=== PATIENT | female | born 1975 | race Caucasian/White ===

== ENCOUNTER → 2024-01-20 13:01 | Outpatient (REF) | payer OTHER, SELFPAY | LOC: HWRAD 13:01 | PROVIDERS: ATTENDING PHYSICIAN Urology; FAMILY PHYSICIAN Family Medicine | DX: N30.10 Interstitial cystitis (chronic) without hematuria (principal); N39.0 Urinary tract infection, site not specified; M62.89 Other specified disorders of muscle; N94.10 Unspecified dyspareunia; N95.8 Other specified menopausal and perimenopausal disorders | CPT/HCPCS: 76770; 76856 ==

== ENCOUNTER → 2024-03-25 12:56 | Outpatient (REF) | payer OTHER, SELFPAY | LOC: HWRAD 12:56 | PROVIDERS: ATTENDING PHYSICIAN Internal Medicine Endocrinology, Diabetes & Metabolism; FAMILY PHYSICIAN Family Medicine | DX: E04.2 Nontoxic multinodular goiter (principal) | CPT/HCPCS: 76536 ==

== ENCOUNTER → 2024-05-19 16:01 | Outpatient (REF) | payer OTHER, SELFPAY | LOC: RAD 16:01 | PROVIDERS: ATTENDING PHYSICIAN Physician Assistant Medical | DX: R10.32 Left lower quadrant pain (principal); R10.9 Unspecified abdominal pain; R10.12 Left upper quadrant pain | CPT/HCPCS: 74176 ==

== ENCOUNTER 2024-07-29 11:23 | Emergency (ER) | payer OTHER, SELFPAY ==
[2024-07-29 11:26] VITALS: BP 135/92
[2024-07-29 11:42] LABS: % Basophils 0.3 % (0-2); % Eosinophils 0.3 % (0-6); % Immature Granulocytes 0.3 % (0-0.5); % Lymphocytes 29.3 % (20.5-51.1); % Monocytes 10.4 % (1.7-9.3); % Neutrophils 59.4 % (42.2-75.2); Absolute Lymphocytes 2.9 10^3/uL (1.2-3.4); Absolute Neutrophils 5.9 10^3/uL (1.4-6.5); Hematocrit 42.3 % (37.0-47.0); Hemoglobin 14.1 g/dL (12.0-16.0); Mean Corp Hgb Conc. 33.3 g/dL (33.0-37.0); Mean Corpuscular Hgb 31.6 pg (27.0-31.0); Mean Corpuscular Volume 94.8 fL (81.0-99.0); Mean Platelet Volume 8.9 fL (7.4-10.4); Nucleated Red Blood Cells % 0 %; Platelet Count 286 10^3/uL (130-400); Red Blood Cell Count 4.46 10^6/uL (4.20-5.40); Red Cell Dist. Width 12.4 % (11.5-14.5); White Blood Cell Count 9.9 10^3/uL (4.8-10.8)
[2024-07-29 12:01] LABS: ALT (SGPT) 24 U/L (0-35); AST (SGOT) 22 U/L (14-36); Albumin 4.7 g/dl (3.5-5.0); Alkaline Phosphatase 31 U/L (38-126); Blood Urea Nitrogen 11 mg/dl (7-17); Calcium 9.5 mg/dl (8.4-10.2); Carbon Dioxide 27 mmol/L (22-30); Chloride 102 mmol/L (98-107); Glucose 92 mg/dl (70-99); Sodium 141 mmol/L (135-145); Total Bilirubin 0.5 mg/dl (0.2-1.3); Total Protein 7.3 g/dl (6.3-8.2); eGFR > 60.00
[2024-07-29 12:12] LABS: Troponin I < 0.012 ng/ml
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
[2024-07-29 13:21] VITALS: BMI 20.3
[2024-07-29 14:09] LABS: D-Dimer 0.67 ug/mlFEU (0.00-0.50)
[2024-07-29 15:01] VITALS: BP 132/82
[2024-07-29 16:33] LABS: Troponin I < 0.012 ng/ml
[2024-07-29 17:00] VITALS: BP 128/86
[2024-07-29 19:02] VITALS: BP 136/78
== END 2024-07-29 19:02 | disposition home or self-care (01) ==
LOC: EMR 11:23
PROVIDERS: Emergency Medicine; Physician Assistant; EMERGENCY PHYSICIAN Emergency Medicine; FAMILY PHYSICIAN Family Medicine
DX: R07.89 Other chest pain (principal); J45.909 Unspecified asthma, uncomplicated; Z98.891 History of uterine scar from previous surgery; M35.9 Systemic involvement of connective tissue, unspecified
CPT/HCPCS: 99284; 71046; 71275; 80053; 84484; 85025; 85379; 93005; Q9967

== ENCOUNTER → 2024-08-26 11:13 | Outpatient (REF) | payer OTHER, SELFPAY | LOC: DHCBC/DCA 11:13 | PROVIDERS: ATTENDING PHYSICIAN Nurse Practitioner; FAMILY PHYSICIAN Family Medicine | DX: R07.9 Chest pain, unspecified (principal) | CPT/HCPCS: 78452; 93017; A9500; J2785 ==

== ENCOUNTER → 2024-08-28 07:25 | Outpatient (REF) | payer OTHER, SELFPAY | LOC: HWRCS 07:25 | PROVIDERS: ATTENDING PHYSICIAN Nurse Practitioner; FAMILY PHYSICIAN Family Medicine | DX: R06.09 Other forms of dyspnea (principal) | CPT/HCPCS: 93306 ==

== ENCOUNTER 2025-01-21 17:15 | Emergency (ER) | payer OTHER, SELFPAY ==
[2025-01-21 17:21] VITALS: BP 174/103
[2025-01-21 17:55] LABS: % Basophils 0.7 % (0-2); % Eosinophils 4.3 % (0-6); % Immature Granulocytes 0.2 % (0-0.5); % Lymphocytes 16.7 % (20.5-51.1); % Monocytes 9.4 % (1.7-9.3); % Neutrophils 68.7 % (42.2-75.2); Absolute Eosinophils 0.2 10^3/uL (0-0.7); Absolute Lymphocytes 0.9 10^3/uL (1.2-3.4); Absolute Monocytes 0.5 10^3/uL (0.1-0.6); Absolute Neutrophils 3.9 10^3/uL (1.4-6.5); Hematocrit 43.8 % (37.0-47.0); Hemoglobin 15.1 g/dL (12.0-16.0); Mean Corp Hgb Conc. 34.5 g/dL (33.0-37.0); Mean Corpuscular Hgb 32.3 pg (27.0-31.0); Mean Corpuscular Volume 93.6 fL (81.0-99.0); Mean Platelet Volume 8.4 fL (7.4-10.4); Nucleated Red Blood Cells % 0 %; Platelet Count 249 10^3/uL (130-400); Red Blood Cell Count 4.68 10^6/uL (4.20-5.40); Red Cell Dist. Width 12.3 % (11.5-14.5); White Blood Cell Count 5.6 10^3/uL (4.8-10.8)
[2025-01-21 18:00] LABS: HCG, Serum Qualitative Screen Negative
[2025-01-21 18:05] LABS: ALT (SGPT) 34 U/L (0-35); AST (SGOT) 45 U/L (14-36); Albumin 4.6 g/dl (3.5-5.0); Alkaline Phosphatase 36 U/L (38-126); Blood Urea Nitrogen 7 mg/dl (7-17); Calcium 9.1 mg/dl (8.4-10.2); Carbon Dioxide 26 mmol/L (22-30); Chloride 106 mmol/L (98-107); Glucose 104 mg/dl (70-99); Potassium 3.8 mmol/L (3.5-5.1); Sodium 138 mmol/L (135-145); Total Bilirubin 0.8 mg/dl (0.2-1.3); Total Protein 7.2 g/dl (6.3-8.2); eGFR > 60.00
[2025-01-21 18:14] LABS: Troponin I < 0.012 ng/ml
[2025-01-21 20:13] VITALS: BP 128/81
[2025-01-21 21:00] VITALS: BP 114/76
[2025-01-21] MEDS: NSS 1000 IV (22:01)
[2025-01-21] MEDS: BENADRYL 25 MG IV (22:02)
[2025-01-21] MEDS: TORADOL 15 MG IV (22:02)
[2025-01-21] MEDS: REGLAN 5 MG IV (22:02)
[2025-01-21 22:06] VITALS: BP 127/96
--- NOTE | 2025-01-21 22:39 | ED.GENMED ---
History of Present Illness
General
Chief Complaint: Blood Pressure Problem
Time Seen by Provider: 01/21/25 20:46
History of Present Illness
History of Present Illness:
49-year-old female with prior history of migraines and neck injury presenting to the emergency department for headache and high blood pressure. Patient reports last evening she had a severe headache, all around her head. When she woke up this
morning felt that it was worse. She took ibuprofen for the headache. 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 Her doctor believes that she may have POTS so
she had metoprolol at home. She took a metoprolol around 3 PM. Since arrival to the hospital, does note overall improvement of her headache. Denies any present for changes. Denies weakness or numbness to her extremities. She does report prior
to arrival she felt that her left side was heavier. Denies recent fall or trauma. Denies chest pain or difficulty breathing. Notes that she has had about 10 migraines in the past, however most recent one was several years ago. Denies additional
acute medical complaints
Past History
Past History
ED Past Medical History: Other (Chronic constipation, autoimmune disease, previous bleeding repair surgery, , diastasis recti repair)
Phy Exam
Physical Exam
Physical Exam:
General: Well-appearing, no clinical signs of dehydration, nontoxic and in no acute distress
HEENT: protecting airway
Neck: appears supple
CV: Normal heart rate, regular rhythm
Resp: No accessory muscle use, no increased work of breathing, lungs clear to auscultation bilaterally
Abd: Soft and non-distended, no tenderness to palpation
Extremities: No deformities, no swelling
Neuro: alert, no focal neurologic deficit
: deferred
Rectal: deferred
Psych: Normal affect
Skin: Intact
Course
Orders/Labs/Results
Orders:
Orders
01/21/25 17:26
Electrocardiogram (*1) Urgent
Reason for Study: Hypertension, Benign
CT Head W/o Iv Contrast Urgent
Comment:
Reason For Exam: headache
EKG- Treatment ONCE
Test Result ONCE
01/21/25 17:43
Cholesterol Urgent
Complete Blood Count/With Diff Urgent
Comprehensive Metabolic Panel Urgent
HCG, Serum Qualitative Screen Urgent
Troponin I Urgent
01/21/25 21:48
0.9% Sodium Chloride 1000 ml [Nss] 1,000 ml IV BOLUS
Diphenhydramine [Benadryl] 25 mg IV NOW STA
Ketorolac [Toradol] 15 mg IV NOW STA
Metoclopramide [Reglan] 5 mg IV NOW STA
01/21/25 22:38
Add On- LAB Urgent
Tests Added?: cholesterol
Abnormal Lab Results
01/21/25
17:43
MCH 32.3 H pg
(27.0-31.0)
Absolute Lymphs (auto) 0.9 L 10^3/uL
(1.2-3.4)
Lymphocytes % 16.7 L %
(20.5-51.1)
Monocytes % 9.4 H %
(1.7-9.3)
Glucose 104 H mg/dl
(70-99)
AST 45 H U/L
(14-36)
Alkaline Phosphatase 36 L U/L
(38-126)
01/21/25 17:43
01/21/25 17:43
Vital Signs
Initial and Last Documented VS:
Initial Vital Signs
Temp Pulse Resp BP Pulse Ox
98.2 F 88 18 174/103 99
01/21/25 17:21 01/21/25 17:21 01/21/25 17:21 01/21/25 17:21 01/21/25 17:21
Last Documented Vital Signs
Temp Pulse Resp BP Pulse Ox
98.2 F 63 21 114/76 98
01/21/25 17:21 01/21/25 21:15 01/21/25 21:15 01/21/25 21:00 01/21/25 21:20
MDM/Problems Addressed
MDM/Problems Addressed:
49-year-old female with history of prior neck injury and migraines presenting for headache and high blood pressure. Vital signs on arrival significant for hypertension, however normalized without any intervention.
On my examination patient is resting comfortably, does report some improvement of her headache. Blood pressure is within normal limits. Symptom presentation and physical exam appears most consistent with tension versus migrainous headache. No
concern for infectious etiology, afebrile, no meningeal signs. No focal neurologic deficits on exam or concern for acute central neurologic process. No report of trauma or concern for any acute traumatic intracranial abnormality. No tenderness to
the temporal arteries, without concern for temporal arteritis. Patient had a nursing protocol placed prior to my assessment. EKG is nonischemic, no arrhythmia. Laboratory analysis obtained, no endorgan dysfunction, without any concern for
hypertensive urgency or emergency. CT brain obtained in the setting of severe headache and high blood pressure, unremarkable. Will administer migraine cocktail and reassess.
22:45 - On reassessment, patient remained stable, continues to report improvement. Suspect that elevated blood pressure may have been from underlying pain. Feel stable for outpatient follow-up. Return precautions discussed and patient verbalized
understanding
*EKG
Interpreted by ED Provider?: Yes
EKG Intrepretation Date: 01/21/25
EKG Intrepretation Time: 22:43
Interpretation: normal
Heart Rate: 65
Rate: normal
Rhythm: sinus
[place]: normal axis
Interval: normal interval
QRS Pattern: normal QRS
Ischemia: no ischemia
*Critical Care Note
Total Time (30-74mins, 75-104mins- exclusive of procedures): Not Applicable
ED Attending Note
-
Portions of this chart may have been created with voice recognition software.� Occasional wrong word or��sound alike� substitutions may have occurred due to the inherent limitations of voice recognition software.
Discharge Plan
Departure
Prescriptions:
No Action
zolpidem [Ambien] 10 MG tablet
5 - 10 mg PO HS PRN (Reason: sleep)
Patient Comments:
03/15/2022: last filled 02/25/22, 30 tabs for 30 days from [facility]
lorazepam 2 mg Tablet
2 mg PO TID PRN (Reason: anxiety)
Patient Comments:
03/15/2022: last filled 02/02/22, 90 tabs for 30 days from [facility]
levothyroxine [Synthroid] 112 mcg Tablet
112 mcg PO DAILY
bupropion HCl [Wellbutrin XL] 150 mg Tablet Extended Release 24 Hr
150 mg PO DAILY
polyethylene glycol 3350 17 gram Powder In Packet
17 grams PO DAILY Qty: 0 0RF
gabapentin 300 mg Capsule
300 mg PO TID Qty: 90 0RF
oxycodone-acetaminophen 5-325 mg Tablet
1 tab PO Q4HPRN PRN (Reason: moderate pain) Qty: 20 0RF
prednisone 50 mg tablet
50 mg PO DAILY Qty: 4 0RF
Referrals:
Barber Casey MD [Family Provider] -
Interventions
Interventions:
*Risk Screen - Suicide Last Done: 01/21/25 17:21
*General Assessment Last Done: 01/21/25 17:21
*Neglect/Abuse Screening Last Done: 01/21/25 17:21
*ED- Fall Risk Assessment Last Done: 01/21/25 20:21
*ED COVID-19 Vaccine History Last Done: 01/21/25 20:21
ED- Cardiac Assessment Last Done: 01/21/25 21:20
ED- Neurological Assessment Last Done: 01/21/25 21:20
ED- Pulmonary Assessment Last Done: 01/21/25 21:20
Discharge Date and Time
Print Language: TELUGU
[2025-01-21 23:00] VITALS: BP 96/67
[2025-01-21 23:11] LABS: Cholesterol 228 mg/dl (50-199)
[2025-01-21] MEDS: DECADRON 10 MG IV (23:30)
[2025-01-21 23:43] VITALS: BP 96/67
[2025-01-22 00:07] LABS: TSH Reflex To Free T4 1.58 uIU/ml (0.47-4.68)
== END 2025-01-21 23:44 | disposition home or self-care (01) ==
LOC: EMR 17:15
PROVIDERS: Emergency Medicine; EMERGENCY PHYSICIAN Student in an Organized Health Care Education/Training Program; FAMILY PHYSICIAN Family Medicine
DX: G43.909 Migraine, unspecified, not intractable, without status migrainosus (principal); E78.00 Pure hypercholesterolemia, unspecified; K59.09 Other constipation; M35.9 Systemic involvement of connective tissue, unspecified; Z98.891 History of uterine scar from previous surgery
CPT/HCPCS: 99284; 96374; 96375; 70450; 80053; 82465; 84443; 84484; 84703; 85025; 93005

== ENCOUNTER → 2025-02-22 14:27 | Outpatient (REF) | payer OTHER, SELFPAY | LOC: RCS 14:27 | PROVIDERS: ATTENDING PHYSICIAN Internal Medicine Cardiovascular Disease; FAMILY PHYSICIAN Family Medicine | DX: R06.09 Other forms of dyspnea (principal); G90.A Postural orthostatic tachycardia syndrome [POTS] | CPT/HCPCS: 71046; 93306 ==

== ENCOUNTER 2025-03-18 23:16 | Emergency (ER) | payer OTHER, SELFPAY ==
[2025-03-18 23:29] VITALS: BP 149/94
[2025-03-19 00:38] VITALS: BMI 20.8
[2025-03-19 01:11] LABS: Hematocrit 39.8 % (37.0-47.0); Hemoglobin 14.0 g/dL (12.0-16.0); Mean Corp Hgb Conc. 35.2 g/dL (33.0-37.0); Mean Corpuscular Volume 92.3 fL (81.0-99.0); Nucleated Red Blood Cells % 0 %; Platelet Count 323 10^3/uL (130-400); Red Cell Dist. Width 11.5 % (11.5-14.5)
[2025-03-19 01:12] LABS: HCG, Serum Qualitative Screen Negative
[2025-03-19 01:20] LABS: ALT (SGPT) 25 U/L (0-35); AST (SGOT) 25 U/L (14-36); Albumin 4.6 g/dl (3.5-5.0); Alkaline Phosphatase 28 U/L (38-126); Blood Urea Nitrogen 13 mg/dl (7-17); Calcium 9.5 mg/dl (8.4-10.2); Carbon Dioxide 27 mmol/L (22-30); Chloride 107 mmol/L (98-107); Estimated Creatinine Clearance 72 ml/min; Glucose 90 mg/dl (70-99); Potassium 4.0 mmol/L (3.5-5.1); Sodium 139 mmol/L (135-145); Total Protein 7.2 g/dl (6.3-8.2); eGFR > 60.00
[2025-03-19 01:38] LABS: Troponin I < 0.012 ng/ml
[2025-03-19] MEDS: MORPHINE SULFATE 4 MG IV (01:56)
--- NOTE | 2025-03-19 02:16 | ED.GENMED ---
History of Present Illness
General
Chief Complaint: Chest Pain
Source: patient
Exam Limitations: none
Time Seen by Provider: 03/19/25 01:12
Nursing documentation reviewed up to this point in time: agreed with
History of Present Illness
History of Present Illness:
see MDM
Past History
Past History
ED Past Medical History: Other (Chronic constipation, autoimmune disease, previous bleeding repair surgery, , diastasis recti repair)
Phy Exam
Physical Exam
Physical Exam:
GENERAL: Alert , in no apparent distress very well appearing
EYE: pupils equal and reactive
NECK: Supple
ENT: o/p clr, mmm.
CARDIAC: Regular rate and rhythm .
chest wall: breast implants
LUNGS: Clear breath sounds bilaterally, no acute respiratory distress, no wheezes/rales/rhonchi
ABDOMEN: Soft, without focal tenderness, no r/g, no cvat, normal bowel sounds
NEUROLOGICAL: Alert and oriented, no focal neuro deficits
SKIN: Warm and dry, skin intact.
MUSCULOSKELETAL: No edema, well perfused. neg lilliana's sign
PSYCH: Normal and appropriate interaction.
Scores
Heart Score for Chest Pain Patients
STEMI patient?: No
History: Slightly or Non-Suspicious
ECG: Normal
Age: >45 - <65 years
Risk Factors: No Risk Factors
Troponin: </= Normal Limit
Heart Score for Chest Pain Patients: 1
Heart Score Risk: 2.5% MACE over next 6 weeks
Course
Orders/Labs/Results
Orders:
Orders
03/18/25 23:20
ECG [Electrocardiogram (*1)] Urgent
Reason for Study: Chest Pain
03/18/25 23:21
EKG- Treatment ONCE
03/19/25 00:25
Cardiac Monitoring- Treatment ONCE
IV Insert/Care/Rem.- Treatment PRN
Test Result ONCE
03/19/25 00:52
Complete Blood Count/With Diff Urgent
Comprehensive Metabolic Panel Urgent
HCG, Serum Qualitative Screen Urgent
Comment: Notify provider if positive test present
NT-proBNP Urgent
Comment: ADD ON
Troponin I Urgent
03/19/25 01:37
CT Chest PE Study Urgent
Comment:
Reason For Exam: chest pain, sob, wheezing;
03/19/25 01:46
Morphine Sulfate 4 mg IV NOW STA
03/19/25 01:48
Add On- LAB Urgent
Tests Added?: bnp
03/19/25 02:13
CT Neck With Iv Contrast Urgent
Comment:
Reason For Exam: trouble swallowign/breathing
Abnormal Lab Results
03/19/25
00:52
MCH 32.5 H pg
(27.0-31.0)
Alkaline Phosphatase 28 L U/L
(38-126)
03/19/25 00:52
03/19/25 00:52
Vital Signs
Initial and Last Documented VS:
Initial Vital Signs
Temp Pulse Resp BP Pulse Ox
36.6 C 70 16 149/94 100
03/18/25 23:29 03/18/25 23:29 03/18/25 23:29 03/18/25 23:29 03/18/25 23:29
Last Documented Vital Signs
Temp Pulse Resp BP Pulse Ox
36.6 C 66 20 111/72 98
03/18/25 23:29 03/19/25 04:49 03/19/25 04:49 03/19/25 04:49 03/19/25 04:49
MDM/Problems Addressed
Differential Diagnosis Includes:
see MDM
MDM/Problems Addressed:
Note:
CHIEF COMPLAINT(S)
Chest pain, shortness of breath, and difficulty swallowing.
HISTORY OF PRESENT ILLNESS
The patient is a 49-year-old female who presents with a history of chest pain, significant shortness of breath, and trouble swallowing. Symptoms started approximately four weeks ago and have progressively worsened over the past month, with
particularly severe episodes in the past few days. The chest pain is described as 'crushing' today, starting around 6 pm, with intermittent inspiratory wheezing, especially noticeable at rest. The patient has been diagnosed with postural orthostatic
tachycardia syndrome (POTS) and is concerned that her chest pain may be related. She reported that her chest pain sometimes relieves transiently for two to three seconds after swallowing food or drinks. She also notes her voice has changed and
reports tingling in her left arm, notably worsening two hours ago, around 9:30 PM. Activities such as walking or lifting exacerbate her symptoms, leading to increased shortness of breath and pain. She was seen by her primary care physician recently,
who recommended various upcoming evaluations, including a thyroid biopsy, upper endoscopy, and swallow study. The patient had recent elevated blood pressure readings, the most significant being 170/100 mmHg,
EXTERNAL RECORDS REVIEWED
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 An echocardiogram was previously performed, but details of the findings were not
provided by the patient during this visit.
CHRONIC MEDICAL CONDITIONS SIGNIFICANTLY AFFECTING CARE
- History of POTS for which she has been prescribed Metoprolol.
- Chronic spinal pain for which she has a transdermal patch () in use.
SOCIAL HISTORY
The patient does not smoke, consume alcohol, or use recreational drugs. She indicated she is proactive about her health.
MEDICATIONS
- Levothyroxine (Synthroid)
- Bupropion
- Transdermal buprenorphine
- Metoprolol, taken twice daily as needed
REVIEW OF SYSTEMS
- Respiratory: Shortness of breath upon exertion.
- Cardiovascular: Chest pain not believed to be cardiac-related.
- Digestive: Difficulty swallowing, relief of chest pain briefly after swallowing.
- Neurological: Tingling in the left arm.
- General: Feeling of severe dehydration.
PROBLEM LIST
Acute:
- Chest pain
- Shortness of breath
- Difficulty swallowing
- Tingling in the left arm
Chronic:
- Postural Orthostatic Tachycardia Syndrome (POTS)
- Chronic spinal pain
PLAN
- Review previous test results to determine further testing needed.
- Patient to follow up with scheduled thyroid biopsy, upper endoscopy, and swallow study.
DIFFERENTIAL DIAGNOSIS
The Differential Diagnosis includes, in no particular order and is not limited to:
- Gastroesophageal reflux disease (GERD)
- Esophageal spasm
- Vocal cord dysfunction
- Thyroid nodule-related obstruction or compression
- Anxiety-related hyperventilation syndrome
- Musculoskeletal pain secondary to prior spinal surgery
- Postural Orthostatic Tachycardia Syndrome (POTS) exacerbation
- Intercostal muscle strain
- Tracheomalacia
- Vocal cord paresis or paralysis
PE, dissection
03/19/25 - 05:08
The patient�s heart enzymes are normal, ruling out a heart attack, blood clot, dissection, or aneurysm. Lung imaging is clear with no signs of pneumonia, fluid, or pneumothorax, although a spontaneous punctured lung has been noted. Neck imaging done
for swallowing issues shows narrowing but no fluid collection or significant lymph node involvement. The thyroid has a heterogeneous lobe on the right side, necessitating a biopsy to investigate further. Despite significant shortness of breath
reported by the patient, no objective emergency cause has been identified, and the need to continue exploring other potential underlying issues is advised.
*Pulse Oximetry
SaO2: 100
Oxygen Mode of Delivery: Room air
Patient hypoxic: no (100)
*Critical Care Note
Total Time (30-74mins, 75-104mins- exclusive of procedures): Not Applicable
ED Attending Note
-
Portions of this chart may have been created with voice recognition software.� Occasional wrong word or��sound alike� substitutions may have occurred due to the inherent limitations of voice recognition software.
Discharge Plan
Departure
Patient Disposition: Home (Routine Discharge)
Date of Disposition: 03/19/25
Time of Disposition: 04:33
Patient with high blood pressure during this ER visit?: No
Condition: Fair
Covid-19: Not Applicable
Discharge Problem:
Dyspnea, Chest pain
Instructions: Chest Pain PCP Follow Up
Prescriptions:
No Action
zolpidem [Ambien] 10 MG tablet
5 - 10 mg PO HS PRN (Reason: sleep)
Patient Comments:
03/15/2022: last filled 02/25/22, 30 tabs for 30 days from [facility]
lorazepam 2 mg Tablet
2 mg PO TID PRN (Reason: anxiety)
Patient Comments:
03/15/2022: last filled 02/02/22, 90 tabs for 30 days from [facility]
levothyroxine [Synthroid] 112 mcg Tablet
112 mcg PO DAILY
bupropion HCl [Wellbutrin XL] 150 mg Tablet Extended Release 24 Hr
150 mg PO DAILY
polyethylene glycol 3350 17 gram Powder In Packet
17 grams PO DAILY Qty: 0 0RF
gabapentin 300 mg Capsule
300 mg PO TID Qty: 90 0RF
oxycodone-acetaminophen 5-325 mg Tablet
1 tab PO Q4HPRN PRN (Reason: moderate pain) Qty: 20 0RF
prednisone 50 mg tablet
50 mg PO DAILY Qty: 4 0RF
Referrals:
UNKNOWN - PT DOES,NOT KNOW [Family Provider]
Activity Restrictions/Additional Instructions:
We are not sure the cause of your symptoms. You had a reassuring CAT scan without any signs of blood clot or dissection, your lungs are clear. Your airway is patent and there are no masses in your lymph nodes or neck. Your neck shows that
heterogeneous lobe of your thyroid and you are planning on having an biopsy tomorrow.
Please continue your workup as an outpatient. Return for any concerns
Interventions
Interventions:
*Risk Screen - Suicide Last Done: 03/18/25 23:29
*General Assessment Last Done: 03/19/25 00:39
*Neglect/Abuse Screening Last Done: 03/18/25 23:29
*ED- Fall Risk Assessment Last Done: 03/19/25 00:39
*ED COVID-19 Vaccine History Last Done: 03/19/25 00:39
*Nursing Disposition Last Done: 03/19/25 04:49
ED- Cardiac Assessment Last Done: 03/19/25 00:39
Discharge Date and Time
Discharge Date/Time: 03/19/25 04:52
Print Language: MOROCCAN
[2025-03-19 04:49] VITALS: BP 111/72
== END 2025-03-19 04:52 | disposition home or self-care (01) ==
LOC: EMR 23:16
PROVIDERS: EMERGENCY PHYSICIAN Student in an Organized Health Care Education/Training Program
DX: R07.9 Chest pain, unspecified (principal); R06.00 Dyspnea, unspecified; G90.A Postural orthostatic tachycardia syndrome [POTS]
CPT/HCPCS: 99284; 96374; 70491; 71275; 80053; 83880; 84484; 84703; 85025; 93005; Q9967

== ENCOUNTER → 2025-03-22 08:03 | Outpatient (REF) | payer OTHER, SELFPAY | LOC: MRI 08:03 | PROVIDERS: ATTENDING PHYSICIAN Physician Assistant Medical; FAMILY PHYSICIAN Family Medicine | DX: G37.9 Demyelinating disease of central nervous system, unspecified (principal); G44.52 New daily persistent headache (NDPH) | CPT/HCPCS: 70553; A9575 ==

== ENCOUNTER → 2025-03-25 07:29 | Outpatient (REF) | payer OTHER, SELFPAY | LOC: MRI 07:29 | PROVIDERS: ATTENDING PHYSICIAN Physician Assistant; FAMILY PHYSICIAN Family Medicine; REFERRING PHYSICIAN Nurse Practitioner | DX: G37.9 Demyelinating disease of central nervous system, unspecified (principal); G44.52 New daily persistent headache (NDPH) | CPT/HCPCS: 72157; 72158; A9575 ==

== ENCOUNTER → 2025-04-02 09:06 | Outpatient (REF) | payer OTHER, SELFPAY | LOC: RAD 09:06 | PROVIDERS: ATTENDING PHYSICIAN Specialist; FAMILY PHYSICIAN Family Medicine | DX: R13.10 Dysphagia, unspecified (principal) | CPT/HCPCS: 74246 ==

== ENCOUNTER → 2025-04-08 07:44 | Outpatient (REF) | payer OTHER, SELFPAY | LOC: RSP 07:44 | PROVIDERS: ATTENDING PHYSICIAN Family Medicine | DX: R06.2 Wheezing (principal); R06.02 Shortness of breath | CPT/HCPCS: 94060 ==

== ENCOUNTER → 2025-04-08 14:23 | Outpatient (REF) | payer OTHER, SELFPAY | LOC: WDC 14:23 | PROVIDERS: ATTENDING PHYSICIAN Family Medicine | DX: Z12.31 Encounter for screening mammogram for malignant neoplasm of breast (principal) | CPT/HCPCS: 77063; 77067 ==

== ENCOUNTER 2025-04-28 06:26 | Day surgery (SDC) | payer OTHER, SELFPAY | END 2025-04-28 15:33 | disposition home or self-care (01) | LOC: GI 06:26 | PROVIDERS: ATTENDING PHYSICIAN Specialist | DX: R07.89 Other chest pain (principal); R13.10 Dysphagia, unspecified; K22.89 Other specified disease of esophagus; K31.819 Angiodysplasia of stomach and duodenum without bleeding; K31.89 Other diseases of stomach and duodenum | CPT/HCPCS: 43239; 88305; 88342 ==

== ENCOUNTER → 2025-05-18 12:42 | Outpatient (REF) | payer OTHER, SELFPAY | LOC: RAD 12:42 | PROVIDERS: ATTENDING PHYSICIAN Surgery Vascular Surgery; FAMILY PHYSICIAN Family Medicine | DX: Z98.890 Other specified postprocedural states (principal); I87.2 Venous insufficiency (chronic) (peripheral) | CPT/HCPCS: 74174; Q9967 ==

== ENCOUNTER → 2025-05-21 15:05 | Outpatient (REF) | payer OTHER, SELFPAY | LOC: RAD 15:05 | PROVIDERS: ATTENDING PHYSICIAN Surgery Vascular Surgery; FAMILY PHYSICIAN Family Medicine | DX: I87.2 Venous insufficiency (chronic) (peripheral) (principal); Z98.890 Other specified postprocedural states | CPT/HCPCS: 93970 ==

== ENCOUNTER → 2025-05-31 09:28 | Outpatient (REF) | payer OTHER, SELFPAY | LOC: HWRAD 09:28 | PROVIDERS: ATTENDING PHYSICIAN Specialist; FAMILY PHYSICIAN Family Medicine | DX: R10.12 Left upper quadrant pain (principal) | CPT/HCPCS: 76700 ==

== ENCOUNTER 2025-07-14 06:25 | Day surgery (SDC) | payer OTHER, SELFPAY ==
[2025-07-14] VITALS (14 sets, daily range): BP systolic 111–156; BP diastolic 69–102; BMI 20.2
[2025-07-14] MEDS: TRANSDERM-SCOP 1 PATCH TRANSDERM (11:34)
[2025-07-14] MEDS: TYLENOL 1000 MG PO (11:34)
[2025-07-14] MEDS: NORMOSOL-R/PLASMALYTE-A 1000 IV (11:35)
[2025-07-14] MEDS: SUBLIMAZE 50 MCG IV ×2 (13:53→14:05)
[2025-07-14] MEDS: DILAUDID 0.5 MG IV ×2 (14:21→14:47)
[2025-07-14] MEDS: ROXICODONE 5 MG PO (16:06)
== END 2025-07-14 16:44 | disposition home or self-care (01) ==
LOC: SDS 06:25
PROVIDERS: ATTENDING PHYSICIAN Surgery
DX: K80.10 Calculus of gallbladder with chronic cholecystitis without obstruction (principal)
CPT/HCPCS: 47563; 74300; 76000; 88304; 88341; 88342; A4300